=== PATIENT | male | born 1945 | race Caucasian/White ===

== ENCOUNTER 2018-02-16 21:24 | Emergency (ER) | payer MEDICARE, OTHER ==
[2018-02-16] MEDS ORDERED: NITROGLYCERIN 0.4 MG 25 EA TAB SL ONE (21:27)
[2018-02-16] MEDS ORDERED: SODIUM CHLORIDE 0.9% (FLUSH) 10 ML SYG IV PRN (21:27)
[2018-02-16] MEDS ORDERED: ONDANSETRON INJ 4 MG/2 ML VIAL IV ONE (21:27)
[2018-02-16] MEDS ORDERED: ASPIRIN TABLET 325 MG TAB PO ONE (21:27)
--- NOTE | 2018-02-16 21:40 | ED.PDOC ---
History of Present Illness - General Chief Complaint: Chest Pain/TN Stated Complaint: chest pain Time Seen by Provider: 02/16/18 21:32 Source: patient Exam Limitations: no limitations - History of Present Illness Initial Comments: Kev Buchanan 72 y/o male came to er with dull pain both arms,chest and teeth discomfort while watching TV at home given Aspirin 324mg by his and took a shot of whisky but denies chronic alcohol use stated left over from thanksgiving brought by son.Has high blood pressure but no cardiac disease. Timing/Duration: 1 hour Severity: moderate Location: shoulder, other - see hpi Activities at Onset: none, rest Prior Chest Pain/Cardiac Workup: no prior chest pain Improving Factors: nothing Worsening Factors: nothing Nitro Today/Relief: 0.4 mg x 1, provided by ED Aspirin Treatment Today: 81 mg x 4, provided at home Associated Symptoms: other - see hpi Allergies/Adverse Reactions: Allergies NO KNOWN ALLERGY Allergy (Unverified 03/01/13 22:59) Review of Systems - Review of Systems Constitutional: States: no symptoms reported EENTM: States: no symptoms reported Respiratory: States: no symptoms reported Cardiology: States: see HPI Gastrointestinal/Abdominal: States: no symptoms reported Genitourinary: States: no symptoms reported Musculoskeletal: States: no symptoms reported Skin: States: no symptoms reported Neurological: States: no symptoms reported Past Medical History (General) - Patient Medical History Hx Hypertension: Yes Surgical History: appendectomy, cholecystectomy - Social History Hx Tobacco Use: No Hx Chewing Tobacco Use: Yes - in the past Hx Alcohol Use: No Hx Substance Use: No Hx Depression: No Feels Threatened In Home Enviroment: No Hx Physical Abuse: No Hx Emotional Abuse: No - Activities of Daily Living Patient Lives Alone: No Family Medical History - Family History Mother Family History: Unknown Hx Cardiac Disease: Yes - mom-CABG in her late 60's Physical Exam - Physical Exam General Appearance: Alert, Comfortable, No apparent distress Eyes, Ears, Nose, Throat Exam: normal ENT inspection Neck: non-tender, full range of motion, supple Respiratory: chest non-tender, lungs clear, normal breath sounds Cardiovascular/Chest: normal peripheral pulses, regular rate, rhythm Peripheral Pulses: radial,right: 2+, radial,left: 2+ Gastrointestinal/Abdominal: non tender, soft, no organomegaly Neurologic: alert, oriented x 3 Skin Exam: normal color, warm/dry Progress - Progress Progress: 02/16/18 22:06 Vital Signs - 24 hr 02/16/18 02/16/18 02/16/18 21:47 21:56 22:01 Temperature 97.8 F Pulse Rate 62 79 Pulse Rate [ 86 86 81 left] Respiratory 22 22 Rate Blood Pressure 112/74 [left] O2 Sat by Pulse 99 Oximetry After obtaining EKG-showing Acute anterolateral wall TN-;Discuss TNKase with patient indication,contraindication as well as side effects major bleeding and patient agreed with plan ;Talked to configurator Dr.Nick Burkett -EKG sent by SMS and called back agreed with plan and for transfer to [facility]. - EKG/XRAY/CT EKG: Sinus, ST elevation - anterolateral leads Comments: HR-72 Departure - Departure Clinical Impression: Acute myocardial infarction involving left anterior descending (LAD) coronary artery Qualifiers: Myocardial infarction type: ST elevation myocardial infarction Qualified Code(s): I21.02 - ST elevation (STEMI) myocardial infarction involving left anterior descending coronary artery Time of Disposition: 22:16 Disposition: Transfer to Hospital Condition: Fair Departure Forms: Patient Portal Self Enrollment Transfer to Outside Facility - Transfer Information Accepting Provider:: Dr. 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
[2018-02-16] MEDS ORDERED: TENECTEPLASE 50 MG VIAL ONE (21:48)
[2018-02-16] MEDS ORDERED: TENECTEPLASE 50 MG VIAL IV ONE (22:00)
--- NOTE | 2018-02-16 22:02 | RAD ---
EXAM DESCRIPTION: Chest,1 View CLINICAL HISTORY: 72 years Male, chest Comparison: None FINDINGS: Single AP view of the chest Cardiomediastinal silhouette is within normal limits. No focal lung consolidation. No pleural effusion. No pneumothorax. Right postero-lateral chronic appearing rib fractures at 6th-8th ribs. IMPRESSION: No acute chest finding. Electronically signed by: Ashleigh Bradley MD 02/16/2018 10:01 PM [employer]
[2018-02-16] MEDS ORDERED: SODIUM CHLORIDE 0.9% 1000ML 1,000 ML ONE (22:10)
[2018-02-16] MEDS ORDERED: HEPARIN PREMIX 500 ML ONE (22:21)
[2018-02-16] MEDS ORDERED: HEPARIN PREMIX 25,000 UNITS in PREMIX BAG 1 BAG IVS ONE (22:30)
[2018-02-17 03:27] VITALS: BP 105/64; TEMP 97.1; O2SAT 96
== END 2018-02-16 22:45 | disposition short-term general hospital (02) ==
LOC: ER 21:24
DX: I21.02 ST elevation (STEMI) myocardial infarction involving left anterior descending coronary artery (principal); I10 Essential (primary) hypertension; Z87.891 Personal history of nicotine dependence
CPT/HCPCS: 36415; 71045; 80048; 80076; 82550; 82553; 83880; 84484; 85025; 85610; 85730; 93005; J1644; J3101; J7030

== ENCOUNTER → 2019-11-21 | Outpatient (CLI) | payer MEDICARE, OTHER ==
--- NOTE | 2019-11-21 14:08 | US ---
EXAM DESCRIPTION: Renal CLINICAL HISTORY: HISTORY OF COMPLEX LEFT RENAL CYST COMPARISON: CT the abdomen pelvis dated 01 March 2013 TECHNIQUE: Sonographic images of the kidneys were acquired bilaterally and submitted for review. FINDINGS: Right kidney Size: 11.2 x 5.34 x 5.78 cm Echogenicity: Hyperechoic Parenchymal thickness and contour: Normal Pelvicalyceal dilatation: None Calculi: None Cysts: None Masses:None Left kidney Size: 12.02 x 5.38 x 6.57 cm Echogenicity: Hyperechoic Parenchymal thickness and contour: Normal Pelvicalyceal dilatation: None Calculi: None Cysts: A large simple upper pole cyst is observed measuring 7.99 x 8.65 x 8.60 cm Masses:None Other findings IVC/aorta: Limited images are unremarkable. Urinary bladder: Normal IMPRESSION: 1. A large simple upper pole cyst is observed measuring 8.65 cm in greatest diameter. 2. Hyperechogenicity is observed in both kidneys suggesting medical renal disease Electronically signed by: Óscar Mccloud MD 11/21/2019 2:07 PM CDT
== END ==
LOC: US 08:00
PROVIDERS: ATTEND Urology
DX: N28.1 Cyst of kidney, acquired (principal); N28.9 Disorder of kidney and ureter, unspecified